=== PATIENT | male | born 1980 | race Two or more races ===

== ENCOUNTER 2017-03-26 15:27 | Emergency (ER) | payer OTHER ==
[~2017-03-26] VITALS: Ht 188 cm; Wt 113.4 kg
[2017-03-26 15:49] VITALS: BP 132/88
[2017-03-26 16:05] LABS: Basophils # (auto) 0.1 uL; Basophils % (auto) 1.6 % (0.0-2.0); Eosinophils # (auto) 0.2 uL; Eosinophils % (auto) 3.4 % (0.0-7.0); Hematocrit 44.7 % (41.0-53.0); Hemoglobin 15.5 g/dL (13.5-17.5); Lymphocytes # (auto) 1.8 uL; Lymphocytes % (auto) 30.6 % (10.0-50.0); Mean Corpuscular Hemoglobin 31.8 pg (28.0-32.0); Mean Corpuscular Hgb Conc. 34.8 g/dL (32.0-36.0); Mean Corpuscular Volume 91.5 fL (80.0-100.0); Mean Platelet Volume 7.2 fL (6.9-10.8); Monocytes # (auto) 0.7 uL; Monocytes % (auto) 11.7 % (0.0-12.0); Neutrophils % (auto) 52.7 % (37.0-80.0); Nucleated Red Blood Cells % 0.3 %; Platelet Count (auto) 373 10^3/uL (140-450); Red Cell Distribution Width 14.3 % (11.8-14.3); White Blood Cell 5.8 10^3/uL (4.4-10.8)
[2017-03-26 16:19] LABS: INR 0.95 (0.9-1.15); Partial Thromboplastin Time 27.5 sec (22.64-33.71); Prothrombin Time 10.4 sec (9.37-12.3)
[2017-03-26] MEDS ORDERED: ACYCLOVIR 400 MG TAB PO ONE (16:30)
[2017-03-26] MEDS ORDERED: methylPREDNISolone SOD SUCC 125 MG/2 ML VL IM ONE (16:30)
[2017-03-26 16:37] LABS: Alkaline Phosphatase 79 U/L (45-117); Anion Gap 7 (5-15); Aspartate Aminotransferase 79 U/L (15-37); BUN/Creatinine Ratio 20.9; Bilirubin, Total 0.4 mg/dL (0.2-1.0); Blood Urea Nitrogen 14 mg/dL (7-18); Calcium 8.6 mg/dL (8.5-10.1); Carbon Dioxide 24 mmol/L (21-32); Chloride 107 mmol/L (98-107); GFR African American 171 mL/min; GFR Non-African American 141 mL/min; Glucose 108 mg/dL (74-106); Potassium 4.1 mmol/L (3.5-5.1); Sodium 138 mmol/L (136-145); Total Protein 8.4 g/dL (6.4-8.2)
[2017-03-26] MEDS ORDERED: LORazepam 0.5 MG TAB PO ONE (17:15)
== END 2017-03-26 18:12 | disposition home or self-care (01) ==
LOC: ER 15:27
DX: G51.0 Bell's palsy (principal)
CPT/HCPCS: 36415; 70450; 71010; 80053; 84484; 85025; 85610; 85730; 93005; 96372; 99285; J2930